=== PATIENT | male | born 2000 ===

== ENCOUNTER 2020-07-22 23:04 | Emergency (ER) | payer OTHER ==
[2020-07-22] MEDS ORDERED: Diphtheria,Pertussis(Acell),Tetanus Vaccine 0.5 ML Syringe IM ONE (23:24)
--- NOTE | 2020-07-22 23:24 | EDM.PDOC ---
ED HPI GENERAL MEDICAL PROBLEM - General Chief Complaint: Laceration Stated Complaint: laceration Time Seen by Provider: 07/22/20 23:15 Source of Information: Reports: Patient. Denies: Old Records (No [facility] records available) History Limitations: Reports: No Limitations - History of Present Illness INITIAL COMMENTS - FREE TEXT/NARRATIVE: The patient was brought to the emergency room via transport vehicle from [facility] for evaluation of a Workmen's Compensation injury which occurred at about 10:25 PM this evening. Notes the patient accidentally caught all of his 4 fingers of both of his hands under a 500 pound H beam with dressing placed prior to arrival, however no wound cleansing, medications, etc. He has not injured these hands in the past. He is right-handed. His tetanus is not up-to-date. No history of paresthesias, neurological deficits, or other complaints or injuries. No recent history of abdominal pain, heartburn, nausea, diarrhea, melena, gross hematochezia, or any food intolerance, including fatty foods, etc.. The patient also denies any recent fever, cough, wheezing, dyspnea, etc.. Onset: Today, Sudden Onset Date: 07/23/20 Onset Time: 22:30 Duration: Constant Location: Reports: Upper Extremity, Left, Upper Extremity, Right. Denies: Radiates to Quality: Reports: Same as Previous Episode, Sharp, Throbbing Severity: Moderate Improves with: Reports: None Worsens with: Reports: None Context: Reports: Trauma (As above) Associated Symptoms: Denies: Confusion, Chest Pain, Cough, Diaphoresis, Fever/Chills, Headaches, Loss of Appetite, Nausea/Vomiting, Shortness of Breath, Syncope, Weakness Treatments [employer]: Reports: Dressing(s) Bilateral Finger-Ring Pain Score (Numeric/FACES): 7 (Hands bilaterally) - Related Data Allergies Allergy/AdvReac Type Severity Reaction Status Date / Time No Known Allergies Allergy Verified 07/22/20 23:06 Home Meds: Home Meds . [No Known Home Meds] 07/22/20 [History] Past Medical History HEENT History: Reports: None Cardiovascular History: Reports: None. Denies: Heart Murmur, Hypertension Musculoskeletal History: Denies: Fracture Neurological History: Reports: Concussion, Head Trauma, Other (See Below) Other Neuro History: Head concussion in about 2003. - Past Surgical History HEENT Surgical History: Reports: Oral Surgery, Other (See Below). Denies: Adenoidectomy, Tonsillectomy Other HEENT Surgeries/Procedures: [place] teeth extraction x4 at age 17. Male Surgical History: Reports: Circumcision, Other (See Below) Other Male Surgeries/Procedures: Circumcision as an infant. Social & Family History - Tobacco Use Tobacco Use Status *Q: Never Tobacco User Tobacco Use Within Last Twelve Months: No Used Tobacco, but Quit: No Smoking Cessation Information Provided To Patient: No Second Hand Smoke Exposure: No Second Hand Smoke Education Provided: No - Living Situation & Occupation Living situation: Reports: Single (No children) Occupation: Employed ([employer]) ED ROS GENERAL - Review of Systems Review Of Systems: Comprehensive ROS is negative, except as noted in HPI. ED EXAM, SKIN/RASH Exam: See Below Exam Limited By: No Limitations General Appearance: Alert, WD/WN, No Apparent Distress Head: Atraumatic, Normocephalic Neck: Normal Inspection, Supple, Non-Tender, Full Range of Motion. No: Lymphadenopathy (L), Lymphadenopathy (R), Thyromegaly Respiratory/Chest: No Respiratory Distress, Lungs Clear, Normal Breath Sounds, No Accessory Muscle Use, Chest Non-Tender. No: Pleural Rub, Retractions Cardiovascular: Normal Peripheral Pulses, No Edema, No Gallop, No JVD, No Murmur, No Rub, Bradycardia (Mild with regular rhythm). No: Gallop/S3, Gallop/S4, Friction Rub Peripheral Pulses: 2+: Radial (L), Radial (R) GI/Abdominal: Normal Bowel Sounds, Soft, Non-Tender, No Organomegaly, No Distention, No Abnormal Bruit, No Mass, Pelvis Stable. No: Guarding (Male) Exam: Deferred Rectal (Males) Exam: Deferred Back Exam: Normal Inspection, Full Range of Motion. No: CVA Tenderness (L), CVA Tenderness (R), Muscle Spasm Extremities: Non-Tender (Mild to moderate tenderness over digits #2 through 5 on hands bilaterally), No Pedal Edema, Normal Capillary Refill, Limited Range of Motion (Fingers 2 through 5 of hands bilaterally with minimal swelling and mu ltiple superficial lacerations over both the extensor and flexor surfaces of these fingers. Ulnar surfaces of the proximal phalanxes of digit #4 of both hands have a 1.5 cm laceration each requiring repair with no foreign body, significant tendon involvement, etc.). No: Joint Swelling, Tamara's Sign Neurological: Alert, Oriented, CN II-XII Intact, Normal Cognition, Normal Gait, No Motor/Sensory Deficits Psychiatric: Normal Affect, Normal Mood Skin: Wound/Incision (As above). No: Diaphoretic Location, Skin: Upper Extremity, Right, Upper Extremity, Left Characteristics: Other (As above) Associated features: Tenderness (As above) Lymphatic: No Adenopathy ED SKIN PROCEDURES - Laceration/Wound Repair Right Lateral Proximal Digit - 4th (Ring) Appearance: Subcutaneous, Clean Distal NVT: Neuro & Vascular Intact, No Tendon Injury Anesthetic Type: Local Local Anesthesia - Lidocaine (Xylocaine): 1% Plain Local Anesthetic Volume: 4cc Skin Prep: Providone-Iodine (Betadine) Saline Irrigation (cc's): 0 Exploration/Debridement/Repair: Wound Explored, In a Bloodless Field, Explored to Base, No Foreign Material Found, Wound Margins Revised, Multiple Flaps Aligned Closed with: Sutures Lac/Wound length In cm: 1.5 Suture Size: 4-0 # of Sutures: 3 Suture Type: Nylon, Interrupted, Simple Drain Placement: No Sterile Dressing Applied: Nurse Tetanus Status Addressed: Yes Complications: No Left Lateral Proximal Digit - 4th (Ring) Appearance: Subcutaneous, Clean Distal NVT: Neuro & Vascular Intact, No Tendon Injury Anesthetic Type: Local Local Anesthesia - Lidocaine (Xylocaine): 1% Plain Local Anesthetic Volume: 4cc Skin Prep: Providone-Iodine (Betadine) Saline Irrigation (cc's): 0 Exploration/Debridement/Repair: Wound Explored, In a Bloodless Field, Explored to Base, No Foreign Material Found, Wound Margins Revised Closed with: Sutures Lac/Wound length In cm: 1.5 Suture Size: 4-0 # of Sutures: 3 Suture Type: Nylon, Interrupted, Simple Drain Placement: No Sterile Dressing Applied: Nurse Tetanus Status Addressed: Yes Complications: No Course - Vital Signs Last Recorded V/S: Last Vital Signs Temp 36.8 C 07/22/20 23:16 Pulse 53 L 07/22/20 23:16 Resp 18 07/22/20 23:16 BP 120/63 07/22/20 23:16 Pulse Ox 98 07/22/20 23:16 Vital Signs - 24 hr 07/22/20 23:16 Temperature [ 36.8 C Temporal] Pulse, 53 L Peripheral [ Right Pulse Oximetry] Respiratory 18 Rate Blood Pressure 120/63 [Right Upper Arm] O2 Sat by Pulse 98 Oximetry - Orders/Labs/Meds Orders: Active Orders 24 hr Category Date Time Status Vaccines to be Administered [RC] PER UNIT ROUTINE Care 07/22/20 23:24 Active Hand Comp Min 3V Bi [CR] Stat Exams 07/22/20 23:24 Ordered Obtain Past Medical Record [OM.PC] Routine Oth 07/22/20 23:25 Active Labs: None Meds: Medications Discontinued Medications Generic Name Dose Route Start Last Admin Trade Name Freq PRN Reason Stop Dose Admin Diphtheria/Tetanus/Acell Pertussis 0.5 ml 07/22/20 23:24 07/23/20 00:23 Boostrix IM 07/22/20 23:25 0.5 ml .ONCE ONE Administration Lidocaine HCl 5 ml 07/22/20 23:25 07/23/20 00:31 Xylocaine-Mpf 1% INJECT 07/22/20 23:26 Not Given ONETIME ONE Lidocaine HCl 5 ml 07/22/20 23:25 07/23/20 00:31 Xylocaine-Mpf 1% INJECT 07/22/20 23:26 Not Given ONETIME ONE Neomycin/Polymyxin/Bacitracin 1 each 07/22/20 23:25 07/23/20 00:23 Triple Antibiotic Oint TOP 07/22/20 23:26 1 each ONETIME ONE Administration - Radiology Interpretation Free Text/Narrative:: X-rays of the hands bilaterally, complete, shows no evidence of fracture, dislocation, foreign body, etc. Departure - Departure Time of Disposition: 00:45 Disposition: Home, Self-Care 01 Condition: Good Clinical Impression: Laceration Contusion Qualifiers: Encounter type: initial encounter Contusion area: hand Laterality: unspecified laterality Qualified Code(s): S60.229A - Contusion of unspecified hand, initial encounter - Discharge Information *PRESCRIPTION DRUG MONITORING PROGRAM REVIEWED*: Not Applicable *COPY OF PRESCRIPTION DRUG MONITORING REPORT IN PATIENT ISA: Not Applicable Instructions: Contusion, [id number], Laceration Care, Adult, [id number], Sutures, Andrea, or Adhesive Wound Closure, [id number] Referrals: PCP,None [Primary Care Provider] - Forms: ED Department Discharge Additional Instructions: 1. Follow up with your regular provider in 10-14 days for suture removal as directed. Bring these discharge instructions with you to that visit. 2. Antibacterial soap wash/soak with subsequent antibacterial dressing such as Neosporin, etc. as directed 2 times per day until the wound or laceration site completely heals. Keep the area clean and dry with activity restrictions as discussed. Never use hydrogen peroxide for wound care. 3. Tylenol 650 mg by mouth every 4 hours and/or OTC ibuprofen 2-3 tabs by mouth every 6 hours with food as directed./needed. You may stagger these medications for 48-72 hours only, which essentially means that you are receiving a pain medication about every 2 hours. 4. Work excuse- See Form 5. Immediately after this visit verify that your cellular telephone's voicemail has been activated and is empty. Also verify that your home telephone's answering machine is operating properly and has space to receive messages. Note that it is sometimes necessary for us to be able to contact you at a later date to discuss your medical care. 6. Please remember that we are ALWAYS here for you and want to answer any questions you may have. Feel free to call the hospital any time and we call you back GEORGE. Sepsis Event Note (ED) - Evaluation Sepsis Screening Result: No Definite Risk - Focused Exam Vital Signs: Vital Signs Temp Pulse Resp BP Pulse Ox 07/22/20 23:16 36.8 C 53 L 18 120/63 98 - Problem List & Annotations (1) Contusion SNOMED Code(s): 066729479 Code(s): T14.8XXA - OTHER INJURY OF UNSPECIFIED BODY REGION, INITIAL ENCOUNTER Status: Acute Priority: High Current Visit: Yes Onset Date: 07/22/20 Annotation/Comment:: Contusions of digits #2 through 5 of his hands bilaterally with lacerations as below. [employer] work excuse and Workmen's Compensation forms were completed. Symptomatic relief as per discharge instructions. Qualifiers: Encounter type: initial encounter Contusion area: hand Laterality: unspecified laterality Qualified Code(s): S60.229A - Contusion of unspecified hand, initial encounter (2) Laceration SNOMED Code(s): 397251986 Code(s): [id number] - Status: Acute Priority: High Current Visit: Yes Onset Date: 07/22/20 Annotation/Comment:: Excellent results with laceration repair as above. Neosporin dressing applied by the nurse. TDAP was given. Wound care, activity restrictions, etc. were discussed. - Problem List Review Problem List Initiated/Reviewed/Updated: Yes - My Orders Last 24 Hours: My Active Orders 07/22/20 23:24 Vaccines to be Administered [RC] PER UNIT ROUTINE Hand Comp Min 3V Bi [CR] Stat 07/22/20 23:25 Obtain Past Medical Record [OM.PC] Routine - Assessment/Plan Last 24 Hours: My Active Orders 07/22/20 23:24 Vaccines to be Administered [RC] PER UNIT ROUTINE Hand Comp Min 3V Bi [CR] Stat 07/22/20 23:25 Obtain Past Medical Record [OM.PC] Routine Assessment:: As above Plan: As above. Extensive precautions were given to the patient, who is in agreement with the treatment plan. See Patient Instructions for further treatment and plan.
[2020-07-22] MEDS ORDERED: Bacitracin/Neomycin/Polymyxin B Oint 0.9 GM U/D Packet TOP ONE (23:25)
== END 2020-07-23 00:45 | disposition home or self-care (01) ==
LOC: LL.ED 23:04
DX: S61.214A Laceration without foreign body of right ring finger without damage to nail, initial encounter (principal); S61.215A Laceration without foreign body of left ring finger without damage to nail, initial encounter; S60.229A Contusion of unspecified hand, initial encounter; Z23 Encounter for immunization; W23.0XXA Caught, crushed, jammed, or pinched between moving objects, initial encounter; Y99.0 Civilian activity done for income or pay
CPT/HCPCS: 12002; 73130; 90471; 90715; 99282; 99283; J2001